=== PATIENT | female | born 1995 | race Two or more races ===

== ENCOUNTER 2018-04-27 07:54 | Day surgery (SDC) | payer BC ==
[~2018-04-27] VITALS: Ht 154.9 cm; Wt 42.2 kg
[2018-04-27] VITALS (12 sets, daily range): BP systolic 103–134; BP diastolic 63–79
--- NOTE | 2018-04-27 01:32 | Pre-op HX & Phy Repo 2 SIG ---
DATE OF ADMISSION: 04/27/2018 HISTORY OF PRESENT ILLNESS: This is a 22-year-old female, who presented to our office with a chief complaint of lower abdominal pain, persistent, getting worse on menstrual period, getting worse on intercourse. The patient was seen several times and was seen by other doctors. Medications like antibiotics and nonsteroidal antiinflammatory drugs does not give any relief. So, on the basis of the patient's complaint and obtaining the ultrasound and pelvic exam, we came to conclusion that the patient has polycystic ovary disease and possible endometriosis. Due to this condition being so persistent, the patient was offered procedure laparoscopy with possible dilation and curettage and hysteroscopy and all details of the procedure explained and all questions answered, possible side effects were explained and the patient signed consent. PRESENT MEDICAL HISTORY: She denies medical problems. She denies heart disease, lung disease, and liver disease. SURGERIES: None. SOCIAL HISTORY: Tobacco, does not smoke. Alcohol, does not drink. HOSPITALIZATIONS: None. REVIEW OF SYSTEMS: Noncontributory. PHYSICAL EXAMINATION: GENERAL: Reveals a well-developed and well-nourished white female, not in acute distress. VITAL SIGNS: Stable. HEENT: Head, normocephalic and atraumatic. Eyes, pupils reactive to light and accommodation. Ears, tympanic membranes intact. Mouth, good hygiene. NECK: Supple without thyromegaly or lymphadenopathy. HEART: Rate and rhythm regular. S1 and S2. LUNGS: Clear to percussion and auscultation. ABDOMEN: Soft, tender over lower quadrant. Costovertebral angle is nontender. Bowel sounds present. PELVIC: Revealed [place]th[place], urethral, and [place] glands within normal limits. Vulva and vagina, no lesions. Cervix closed. Uterus, mobile and normal size. Adnexa, no palpable masses. The ultrasound revealed a normal sized uterus and bilateral multicystic ovaries, possible polycystic ovarian syndrome, and free fluid in the pelvis. LABORATORY DATA: Her H and H from 04/19/2018 are 12 and 36.5 and WBC 6.2. Her blood type is O-negative. test is negative. IMPRESSION: Persistent low abdominal pain, polycystic ovarian syndrome, endometriosis, dysmenorrhea, and dyspareunia. PLAN: Laparoscopy and hysteroscopy. Summer Dunaway M.D. DR: ELIS JOB#: [id number] CC:
[~2018-04-27 07:54] MED LIST: SAFYRAL TABLET1 EACH PO; cefOXitin 1gm/D5W 55ml IVPB ONE
--- NOTE | 2018-04-27 09:25 | Pre-Procedure Note/Attestation ---
Pre-Procedure Note/Attestation Complete Prior to Procedure Planned Procedure: not applicable Procedure Narrative: Video Laser Pelviscopy, Video Hysteroscopy, D&C Indications for Procedure Pre-Operative Diagnosis: Chronic Pelvic Pain, Dyspareunia, Dysmenorrhea Attestation I attest that I discussed the nature of the procedure; its benefits; risks and complications; and alternatives (and the risks and benefits of such alternatives ), prior to the procedure, with the patient (or the patient's legal denial management representative). I attest that, if there was a reasonable possibility of needing a blood transfusion, the patient (or the patient's legal denial management representative) was given the [place] Department [employer] standardized written summary, pursuant to the Myles Bertrand Blood Safety Act ([place] Health and Safety Code # 1645, as amended). I attest that I re-evaluated the patient just prior to the surgery and that there has been no change in the patient's H&P, except as documented below:NONE ROZINA DA SILVA Apr 27, 2018 09:25
[2018-04-27] MEDS ORDERED: fentaNYL 100 mcg/2 mL IV ONE (09:26)
[2018-04-27] MEDS ORDERED: Midazolam 2mg/2ml Inj ONE (09:26)
[2018-04-27] MEDS ORDERED: Ropivacaine 5mg/ml Vial 30ml INJ ONE (09:29)
[2018-04-27] MEDS ORDERED: cefOXitin 1gm Inj ONE (09:29)
[2018-04-27] MEDS ORDERED: NS Irrig 1000ml ONE (09:30)
[2018-04-27] MEDS ORDERED: Ketorolac 30mg Inj ONE (09:30)
[2018-04-27] MEDS ORDERED: LR 1000ml ONE (09:30)
--- NOTE | 2018-04-27 09:40 | Anethesia Preoperative Eval ---
Anesthesia Pre-op PMH/ROS General Date of Evaluation: Apr 27, 2018 Time of Evaluation: 09:39 Anesthesiologist: rom ASA Score: ASA 1 Mallampati Score Class I : Soft palate, uvula, fauces, pillars visible Class II: Soft palate, uvula, fauces visible Class III: Soft palate, base of uvula visible Class IV: Only hard plate visible Mallampati Classification: Class II Surgeon: Emelyn Diagnosis: Endometriosis Surgical Procedure: Laparoscopy Anesthesia History: none Family History: no anesthesia problems Allergies: Coded Allergies: PENICILLINS (Verified Allergy, Unknown, 04/24/18) Uncoded Allergies: AMOXICILL (Allergy, Mild, 04/26/18) ITCHING AND RASHES Medications: see eMAR Past Medical History Cardiovascular: Denies: HTN, CAD, NV, valve dz, arrhythmia, other Pulmonary: Denies: asthma, COPD, KAYY, other Gastrointestinal/Genitourinary: Denies: GERD, CRI, ESRD, other Neurologic/Psychiatric: Denies: dementia, CVA, depression/anxiety, TIA, other Endocrine: Denies: DM, hypothyroidism, steroids, other HEENT: Denies: cataract (L), cataract (R), glaucoma, [place] (L), [place] (R), other Hematology/Immune: Denies: anemia, DVT, bleeding disorder, other Musculoskeletal/Integumentary: Denies: OA, RA, DJD, DDD, edema, other PSxH Narrative: none Anesthesia Pre-op Phys. Exam Physician Exam Last Vital Signs Date Time Temp Pulse Resp B/P (MAP) Pulse Ox O2 Delivery O2 Flow Rate FiO2 04/27/18 08:53 98.2 64 20 104/63 99 Room Air 98.2 Constitutional: NAD Neurologic: CN 2-12 intact Cardiovascular: RRR Respiratory: CTA Gastrointestinal: S/NT/ND Airway Exam Mallampati Classification 2 Mallampati Score: Class II MO: full ROM: full Dentures: no upper, no lower Anesthesia Pre-op A/P Labs Urine Test Test 04/27/18 08:10 Urine HCG, Qualitative Negative (NEGATIVE) Studies Pre-op Studies: EKG - sr Risk Assessment & Plan Assessment: denies Plan: general Status Change Before Surgery: No Pre-Antibiotics Drug: mefoxitin Given Within 1 Hr of Incision: Yes Time Given: 09:45 Estela Barry CRNA Apr 27, 2018 09:40
[2018-04-27] MEDS ORDERED: Zemuron 50mg/5ml Inj IV ONE (09:46)
[2018-04-27] MEDS ORDERED: Metoclopramide 10mg/2ml Inj IVP PRN (10:27)
[2018-04-27] MEDS ORDERED: Lidocaine 1% MPF 10mg/ml 5ml ONE (10:32)
[2018-04-27] MEDS ORDERED: Propofol 200mg/20ml IV ONE (10:32)
[2018-04-27] MEDS ORDERED: Glycopyrrolate 0.2mg/ml 1ml Vial ONE (10:32)
[2018-04-27] MEDS ORDERED: Neostigmine 1mg/ml 10ml Inj ONE (10:32)
[2018-04-27] MEDS ORDERED: Metoclopramide 10mg/2ml Inj ONE (10:32)
[2018-04-27] MEDS ORDERED: NS 55ml IV ONE (11:00)
--- NOTE | 2018-04-27 11:41 | Immediate Post-Op Evaluation ---
Immediate Post-Op Evalulation Immediate Post-Op Evalulation Procedure: laparoscopy Date of Evaluation: Apr 27, 2018 Time of Evaluation: 11:40 IV Fluids: 500 Blood Products: 0 Blood Pressure Systolic: 121 Blood Pressure Diastolic: 75 Pulse Rate: 57 Respiratory Rate: 14 O2 Sat by Pulse Oximetry: 100 Temperature (Fahrenheit): 98.6 Pain Score (1-10): 0 Nausea: No Vomiting: No Complications none Patient Status: awake, reacts, patent Hydration Status: adequate Drug: mefoxitin Given Within 1 Hr of Incision: Yes Time Given: 09:45 Estela Barry CRNA Apr 27, 2018 11:41
[2018-04-27] MEDS: fentaNYL 100 mcg/2 mL IV PRN ×2 (11:55→12:16)
--- NOTE | 2018-04-27 13:12 | 48 Hour Post Anesthesia Eval ---
Post Anesthesia Evaluation Procedure: laparoscopy Date of Evaluation: Apr 27, 2018 Time of Evaluation: 13:11 Blood Pressure Systolic: 128 0: 74 Pulse Rate: 70 O2 Sat by Pulse Oximetry: 99 Airway: patent Nausea: No Vomiting: No Hydration Status: adequate Cardiopulmonary Status: stable Mental Status/LOC: patient returned to baseline Follow-up Care/Observations: na Post-Anesthesia Complications: none Follow-up care needed: N/A Estela Barry CRNA Apr 27, 2018 13:12
--- NOTE | 2018-05-02 19:33 | Brief Operative Note ---
Immediate Post Operative Note Operative Note Pre-op Diagnosis: Chronic Pelvic Pain, Dyspareunia, Dysmenorrhea Procedure: VLP, Hysteroscopy, Laser Vaporization of Endometriosis, Biopsy of pelvic peritoneum Post-op Diagnosis: same as pre-op plus - Likely white endometriosis, Surgeon: Rozina Da Silva Belt Cleaner: Deepthi Freeman Anesthesiologist: Estela Barry Anesthesia: general Specimen: yes Complications: none Condition: stable Fluids: LR @125 ml/hr Estimated Blood Loss: minimal Implant(s) used?: No ROZINA DA SILVA May 02, 2018 19:33
--- NOTE | 2018-05-02 23:45 | Operative Note - Dictated ---
DATE OF OPERATION: 05/02/2018 PREOPERATIVE DIAGNOSES: Chronic pelvic pain, dyspareunia, and dysmenorrhea. POSTOPERATIVE DIAGNOSES: Chronic pelvic pain, dyspareunia, dysmenorrhea, likely white endometriosis in multiple areas of the pelvis. SURGEON: Jose Dunaway M.D. BOARD MEMBER: Deepthi Freeman M.D. ANESTHESIOLOGIST: sEtela Barry CRNA. ANESTHESIA: General. APPROXIMATE BLOOD LOSS: Minimal. PROCEDURE IN DETAIL: After the appropriate consents were signed, the patient was brought to the operating room and placed on a table in supine position. General endotracheal anesthesia was induced without complication. The patient was then placed in a dorsal lithotomy position. Perineum, vagina, and abdomen were prepped and draped in the usual fashion for the procedure. The patient was then prepped and draped in the usual fashion. The procedure began with the vaginal portion of the procedure where the endometrium was visualized after the cervix was dilated. The endometrial cavity appeared to be within normal limits. The procedure was then continued with endocervical curettage and endometrial curettage. The uterine manipulator was then placed in uterus. The procedure was then continued at its abdominal portion where an umbilical incision was made. Veress needle was introduced and the abdomen was insufflated with 15 mmHg. A 10 mm trocar was then placed atraumatically. The pelvic contents were visualized once the laparoscope was introduced. At this time, two additional trocars were placed in pelvis. At this time, the patient was examined under anesthesia. The ovary and uterus appeared to be within normal limits. The pelvic peritoneum appeared to have a number of whitish scar like areas throughout the peritoneum. The posterior cul-de-sac contained another area that is also whitish scarred down area. The left uterosacral ligament contained a scar-like whitish area of reminiscent also white endometriosis. Upper abdomen was examined and there were no liver adhesions. Again, the area in the left upper abdomen contained a number of scarred down areas of white endometriosis. At this time, CO2 laser was utilized to gently ablate the number of areas around the pelvis. Areas on the left uterosacral ligament was biopsied and marked as left peritoneal biopsy. The additional biopsies were taken from the posterior cul-de-sac. Additional vaporization was undertaken with CO2 laser in the upper abdomen, especially on the left side. Multiple areas were ablated. At this time, the pelvis was once again visualized and no additional pathology was identified. All the areas of dissection and vaporization were found to be completely hemostatic. The instruments were removed one after another under direct visualization with laparoscope. The operative sites were fully hemostatic. The midline puncture was closed using #0 Vicryl suture and Steri-Strips and benzoin. The rest of the incisions were closed with Steri-Strips and benzoin. At this time, the patient was placed back in the supine position and awakened from general anesthesia. She tolerated the procedure very well. Jose Dunaway M.D. DR: TERESE JOB#: [id number] CC:
== END 2018-04-27 14:05 | disposition home or self-care (01) ==
LOC: SUR 07:54
DX: R10.2 Pelvic and perineal pain (principal); N71.1 Chronic inflammatory disease of uterus; N94.10 Unspecified dyspareunia; N94.6 Dysmenorrhea, unspecified
CPT/HCPCS: 49321; 58558; 81025; J0694; J1885; J2250; J2405; J2704; J2710; J2765; J2795; J3010; J7120; 94003; 94150